=== PATIENT | male | born 1990 | race Two or more races ===

== ENCOUNTER 2018-03-29 01:35 | Emergency (ER) | payer OTHER ==
[~2018-03-29] VITALS: Ht 195.6 cm; Wt 81.6 kg
--- NOTE | 2018-03-29 01:48 | NUR ---
PT BIB RA. COMP OF "WAS GIVEN ALOT OF FENTANYL AND PASSED OUT". 911 WAS CALLED. PT AOX4. NARCAN GIVEN ON ROUTE. NO SOB NOTED. -N/V. -DIZZINESS. AWAITING MD CALHOUN.
[2018-03-29] MEDS ORDERED: ACETAMINOPHEN ES 500 MG TABLET PO ONE (02:00)
[2018-03-29] MEDS ORDERED: ONDANSETRON HCL/PF 4 MG/2 ML VIAL ONE (02:21)
[2018-03-29] MEDS ORDERED: ONDANSETRON HCL/PF - ER 4 MG/2 ML VIAL IV ONE (02:30)
[2018-03-29 03:46] VITALS: BP 154/82
== END 2018-03-29 03:47 | disposition home or self-care (01) ==
LOC: ER 01:36
DX: T40.601A Poisoning by unspecified narcotics, accidental (unintentional), initial encounter (principal); F17.200 Nicotine dependence, unspecified, uncomplicated; Z60.2 Problems related to living alone; Z86.19 Personal history of other infectious and parasitic diseases; Y92.89 Other specified places as the place of occurrence of the external cause
CPT/HCPCS: 96374; 99283; A4606; J2405